=== PATIENT | male | born 1975 | race Two or more races ===

== ENCOUNTER 2024-08-31 00:54 | Emergency (ER) | payer MEDICAID, OTHER ==
[~2024-08-31] VITALS: Ht 177.8 cm; Wt 86.4 kg
[2024-08-31 01:29] LABS: Basophils # (auto) 0 10 ^3/uL (0-0.2); Basophils % (auto) 0.8 % (0.0-2.0); Eosinophils # (auto) 0.1 10 ^3/uL (0-0.8); Hematocrit 44.1 % (41.0-53.0); Lymphocytes # (auto) 1.7 10 ^3/uL (0.4-5.4); Lymphocytes % (auto) 31.8 % (10.0-50.0); Mean Corpuscular Hemoglobin 28.4 pg (28.0-32.0); Mean Corpuscular Volume 83.4 fL (80.0-100.0); Monocytes # (auto) 0.4 10 ^3/uL (0-1.3); Monocytes % (auto) 8.3 % (0.0-12.0); Neutrophils # (auto) 3.1 10 ^3/uL (1.6-8.6); Neutrophils % (auto) 58.1 % (37.0-80.0); Platelet Count (auto) 245 10^3/uL (140-450); Red Blood Cells 5.28 10^6/uL (4.5-5.90); Red Cell Distribution Width 12.8 % (11.8-14.3); White Blood Cell 5.4 10^3/uL (4.4-10.8)
[2024-08-31] MEDS: ONDANSETRON HCL 4 MG/2 ML VIAL IV ONE (01:43)
[2024-08-31] MEDS: HYDROmorphone HCL 2 MG/ML VL/or syr IV ONE (01:45)
[2024-08-31] MEDS: KETOROLAC TROMETH 30 MG/ML 1ML VIAL IV ONE (01:45)
[2024-08-31 01:46] LABS: Alanine Aminotransferase 21 U/L (7-40); Alkaline Phosphatase 50 U/L (46-116); Anion Gap 12 (5-15); Aspartate Aminotransferase 20 U/L (<34); BUN/Creatinine Ratio 17.4 (10.0-20.0); Bilirubin, Total 0.4 mg/dL (0.2-1.0); Blood Urea Nitrogen 20 mg/dL (9-23); Calcium 9.6 mg/dL (8.7-10.4); Carbon Dioxide 25 mmol/L (20-31); Chloride 102 mmol/L (98-107); Lipase 38 U/L (12-53); Potassium 3.8 mmol/L (3.5-5.1); Sodium 139 mmol/L (136-145); Total Protein 7.2 g/dL (5.7-8.2)
[2024-08-31] MEDS: SODIUM CHLORIDE 0.9% 1,000 ML IVB ONE (01:46)
--- NOTE | 2024-08-31 02:00 | ED.PDOC ---
History of Present Illness HPI Comments 49 y/o M, with a history of DVT's - on Eliquis, DM, HLD, and HTN, is BIBA for c/o nonradiating, right flank pain for the past 3-4x days. Patient endorses on pain being constant until worsening today following initial unprovoked onset. It is a 10/10 in severity, sharp in quality, and luzmaria to 'child .' Patient also reports 1x incident of hematuria 3x days ago. No recent injuries, prior ailments, sick contact, spoiled food consumption, or travel endorsed. He denies any nausea, vomiting, dysuria, fever, chills, or further associated symptoms. Chief Complaint: Flank Pain Time Seen by MD: 01:10 Reviewed Notes: Nurses Notes, Personal Finance Instructor Notes, Medications, Allergies Allergies: Coded Allergies: NO KNOWN ALLERGIES (Unverified , 08/31/24) Home Meds Active Scripts Gabapentin (Once-Daily) (Gabapentin) 300 Mg Tab, 300 MG PO Q6HP PRN, #60 TAB Prov:MARTHA LR MD 08/31/24 Tamsulosin Hcl (Flomax) 0.4 Mg Cap, 1 CAP PO DAILY for 30 Days, #30 CAP Prov:MARTHA LR MD 08/31/24 Information Source: Patient, Emergency Med Personnel Mode of Arrival: EMS Severity: Moderate Timing: Days Duration: Since onset Prehospital treatment: 12 Lead EKG, Solid Waste Facility Operator Past Medical History PAST MEDICAL HISTORY: DM, High Lipids, HTN Past Medical History (Other): DVT's - on Eliquis Surgical History (Other): Spinal fusion All Other Systems: Reviewed and Negative (Comprehensive systems review obtained and negative except for what is stated in the HPI.) Physical Exam General Appearance: Moderate Distress, Normal HEENT: Normal ENT Inspection, Pharynx Normal, TMs Normal Neck: Full Range of Motion, Non-Tender, Normal, Normal Inspection Respiratory: Chest Non-Tender, Lungs Clear, No Accessory Muscle Use, No Respiratory Distress, Normal Breath Sounds Cardiovascular: No Edema, No JVD, No Murmur, No Gallop, Normal Peripheral Pulses, Regular Rate/Rhythm Breast Exam: Deferred Gastrointestinal: No Organomegaly, Non Tender (Patient states on pain hurting 'deep inside' abdomen), No Pulsatile Mass, Normal Bowel Sounds, Soft Genitalia: Deferred Pelvic: Deferred Rectal: Deferred Extremities: No calf tenderness, Normal capillary refill, Normal inspection, Normal range of motion, Non-tender, No pedal edema Musculoskeletal : Apperance: Normal Neurologic: Alert, animal assistant II-XII nml as Tested, No Motor Deficits, Normal Affect, Normal Mood, No Sensory Deficits Cerebellar Function: Normal Reflexes: Normal Skin: Dry, Normal Color, Warm Lymphatic: No Adenopathy Was a procedure done? Was a procedure done?: No Differential Dx Considerations may include: Nephrolithiasis, pyelonephritis, cystitis, PID, musculoskeletal, chronic pain syndrome, among others X-Ray, Labs, Meds, VS Vital Signs Date Time Temp Pulse Resp B/P (MAP) Pulse Ox O2 Delivery O2 Flow Rate FiO2 08/31/24 02:58 64 12 96 Room Air 08/31/24 02:40 96.0 64 12 129/83 (98) 96 96.0 08/31/24 02:39 64 12 129/83 08/31/24 01:45 73 18 151/89 08/31/24 01:03 97.5 66 18 159/92 (114) 97 97.5 Lab Test 08/31/24 01:20 Range/Units White Blood Count 5.4 4.4-10.8 10^3/uL Red Blood Count 5.28 4.5-5.90 10^6/uL Hemoglobin 15.0 13.5-17.5 g/dL Hematocrit 44.1 41.0-53.0 % Mean Corpuscular Volume 83.4 80.0-100.0 fL Mean Corpuscular Hemoglobin 28.4 28.0-32.0 pg Mean Corpuscular Hemoglobin Concent 34.0 32.0-36.0 g/dL Red Cell Distribution Width 12.8 11.8-14.3 % Platelet Count 245 140-450 10^3/uL Mean Platelet Volume 7.6 6.9-10.8 fL Neutrophils (%) (Auto) 58.1 37.0-80.0 % Lymphocytes (%) (Auto) 31.8 10.0-50.0 % Monocytes (%) (Auto) 8.3 0.0-12.0 % Eosinophils (%) (Auto) 1.0 0.0-7.0 % Basophils (%) (Auto) 0.8 0.0-2.0 % Neutrophils # (Auto) 3.1 1.6-8.6 10 ^3/uL Lymphocytes # (Auto) 1.7 0.4-5.4 10 ^3/uL Monocytes # (Auto) 0.4 0-1.3 10 ^3/uL Eosinophils # (Auto) 0.1 0-0.8 10 ^3/uL Basophils # (Auto) 0 0-0.2 10 ^3/uL Nucleated Red Blood Cells 0.0 % Sodium Level 139 136-145 mmol/L Potassium Level 3.8 3.5-5.1 mmol/L Chloride Level 102 98-107 mmol/L Carbon Dioxide Level 25 20-31 mmol/L Anion Gap 12 5-15 Blood Urea Nitrogen 20 9-23 mg/dL Creatinine 1.15 0.700-1.30 mg/dL Glomerular Filtration Rate Calc 77 >90 mL/min BUN/Creatinine Ratio 17.4 10.0-20.0 Serum Glucose 110 H 74-106 mg/dL Calcium Level 9.6 8.7-10.4 mg/dL Total Bilirubin 0.4 0.2-1.0 mg/dL Aspartate Amino Transferase (AST) 20 <34 U/L Alanine Aminotransferase (ALT) 21 7-40 U/L Alkaline Phosphatase 50 46-116 U/L Total Protein 7.2 5.7-8.2 g/dL Albumin 4.8 3.2-4.8 g/dL Lipase 38 12-53 U/L Current Medications Medications (Trade) Dose Ordered Sig/Lucho Route Start Time Stop Time Status Last Admin Ondansetron HCl (Zofran) 4 mg ONCE ONCE IV 08/31/24 01:15 08/31/24 01:16 DC 08/31/24 01:43 Hydromorphone HCl (Dilaudid Injection) 1 mg ONCE ONCE IV 08/31/24 01:15 08/31/24 01:16 DC 08/31/24 01:45 Sodium Chloride 1,000 ml @ 1,000 mls/hr Q1H ONCE IVB 08/31/24 01:15 08/31/24 02:14 DC 08/31/24 01:46 Ketorolac Tromethamine (Toradol Injection) 15 mg ONCE ONCE IV 08/31/24 01:15 08/31/24 01:16 DC 08/31/24 01:45 Tamsulosin HCl (Flomax) 0.4 mg ONCE ONCE PO 08/31/24 03:00 08/31/24 03:01 DC 08/31/24 03:03 Time of 1ST Reevaluation: 01:40 Reevaluation 1ST: Unchanged Patient Education/Counseling: Diagnosis, Treatment Family Education/Counseling: No Family Present SEPSIS Sepsis Screen Date sepsis recognized/suspect: Aug 31, 2024 Time Sepsis recognized/suspect: 55 Recent Procedure: No On Antibiotic Therapy: No Respiratory Rate >20: No Heart Rate >90: No Temp<36 C (96.8 F) or >38.3 C: No SBP <90 or MAP <65 mmHG: No New Acute Mental Status Change: No Is the patient on CPAP, BIPAP,: No Orders/Vitals/Labs Physician Orders Urinalysis (08/31/24 01:11) Ct Ab Pel Wo Con-No Oral Or Iv (08/31/24 01:11) Vital Signs Date Time Temp Pulse Resp B/P (MAP) Pulse Ox O2 Delivery O2 Flow Rate FiO2 08/31/24 02:58 64 12 96 Room Air 08/31/24 02:40 96.0 64 12 129/83 (98) 96 96.0 08/31/24 02:39 64 12 129/83 08/31/24 01:45 73 18 151/89 08/31/24 01:03 97.5 66 18 159/92 (114) 97 97.5 Laboratory Tests Test 08/31/24 01:20 White Blood Count 5.4 10^3/uL (4.4-10.8) Medications Medications Dose Ordered Sig/Lucho Route Start Time Stop Time Status Last Admin Dose Admin Hydromorphone HCl 1 mg ONCE ONCE IV 08/31/24 01:15 08/31/24 01:16 DC 08/31/24 01:45 Ketorolac Tromethamine 15 mg ONCE ONCE IV 08/31/24 01:15 08/31/24 01:16 DC 08/31/24 01:45 Ondansetron HCl 4 mg ONCE ONCE IV 08/31/24 01:15 08/31/24 01:16 DC 08/31/24 01:43 Sodium Chloride 1,000 ml @ 1,000 mls/hr Q1H ONCE IVB 08/31/24 01:15 08/31/24 02:14 DC 08/31/24 01:46 Tamsulosin HCl 0.4 mg ONCE ONCE PO 08/31/24 03:00 08/31/24 03:01 DC 08/31/24 03:03 Departure 1 Departure Time of Disposition: 03:18 Impression: Primary Impression: Right ureteral calculus Additional Impression: Ureteral colic Disposition: HOME / SELF CARE / HOMELESS Condition: Stable e-Prescriptions Gabapentin (Once-Daily) (Gabapentin) 300 Mg Tab 300 MG PO Q6HP PRN, #60 TAB Prov: MARTHA LR MD 08/31/24 Tamsulosin Hcl (Flomax) 0.4 Mg Cap 1 CAP PO DAILY for 30 Days, #30 CAP Prov: MARTHA LR MD 08/31/24 Discharged With: Self Critical Care Note Critical Care Time?: No Stability Stability form required: No Heart Score Heart Score: Heart Score Response (Comments) Value History N/A 0 EKG N/A 0 Age N/A 0 Risk Factors N/A 0 Troponin N/A 0 Total 0 I personally scribed for MARTHA LR MD ([email or web address]) on 08/31/24 at 02:00. Electronically submitted by Job Braswell ([email or web address]). MARTHA LR MD Aug 31, 2024 02:00
--- NOTE | 2024-08-31 02:01 | DVH ---
Exam: CT CT AB PEL WO CON-NO ORAL OR IV History: right flank pain Comparison Study: None TECHNIQUE: Multidetector CT of the abdomen and pelvis was performed from lung bases to pubic symphysi s. Imaging was performed without IV contrast. Axial, coronal, and sagittal multiplanar reformats were obtained from the axial data set by the technologist. RADIATION DOSE: DLP 8.3 mGy.cm; CTDI vol 493.5 mGy. Findings: Lungs: There are dependent atelectatic changes. Liver: Unremarkable. Gallbladder: Unremarkable. Spleen: Unremarkable Pancreas: Unremarkable Adrenals: Unremarkable Kidneys: There is a 5 mm calculus situated within the right proximal ureter with mild right hydroneph rosis. An additional 3 mm calculus is seen in the right renal collecting system. The left kidney is unremarkable. GI tract: No bowel obstruction. The appendix is normal. Tiny fat containing umbilical hernia. : Unremarkable. Vasculature: Unremarkable Lymphadenopathy: Absent Peritoneum: No ascites Musculoskeletal: Postsurgical changes at L4-5. Soft tissues: Unremarkable Impression: 1. 5 mm calculus situated within the right proximal ureter with mild right hydronephrosis. 2. Additional findings as detailed.
[2024-08-31 02:21] LABS: Albumin 4.8 g/dL (3.2-4.8); Glucose 110 mg/dL (74-106)
[2024-08-31 02:40] VITALS: BP 129/83; TEMP 96
[2024-08-31 02:58] VITALS: PULSE 64; RESP 12; O2SAT 96
[2024-08-31] MEDS ORDERED: TAMS-35 PO (03:01)
[2024-08-31] MEDS ORDERED: GABA300T4 PO (03:01)
[2024-08-31] MEDS: TAMSULOSIN HYDROCHLORIDE 0.4 MG CAP PO ONE (03:03)
[2024-08-31 03:19] LABS: Urine Bacteria None Seen /hpf (None Seen)
[2024-08-31 03:31] LABS: Urine Blood 3+ /uL (Negative); Urine Clarity Turbid (Clear); Urine Color Light-Orange (Yellow); Urine Mucus FEW (None Seen); Urine Protein, UAD 1+ (Negative); Urine Specific Gravity 1.028 (1.001-1.035); Urine Squamous Epithelial Cell FEW /hpf (<5); Urine Urobilinogen Normal (Negative); Urine WBC 3 /HPF (0-3); Urine pH 5.5 (5.0-9.0)
[2024-08-31] MEDS ORDERED: LISI-285 PO (13:55)
[2024-08-31] MEDS ORDERED: APIX5TAB PO (13:55)
[2024-08-31] MEDS ORDERED: FENO134C19 PO (13:55)
== END 2024-08-31 03:18 | disposition home or self-care (01) ==
LOC: EDBD 00:54 → ER 00:54
DX: N13.2 Hydronephrosis with renal and ureteral calculous obstruction (principal); I10 Essential (primary) hypertension; E11.9 Type 2 diabetes mellitus without complications; E78.5 Hyperlipidemia, unspecified; Z86.718 Personal history of other venous thrombosis and embolism
CPT/HCPCS: 36415; 74176; 80053; 81001; 83690; 85025; 96361; 96374; 96375; 99285; J1171; J1885; J2405; J7030

== ENCOUNTER 2024-08-31 09:08 | Inpatient (IN) | payer MEDICAID ==
[~2024-08-31] VITALS: Ht 175.3 cm; Wt 181.5 kg
[~2024-08-31 09:08] MED LIST: GABA300T4 PO; TAMS-35 PO
--- NOTE | 2024-08-31 09:40 | ED.PDOC ---
General HPI Comments 49 y/o M, with a history of DVT's - on Eliquis, DM, HLD, and HTN, is BIBA for c/o nonradiating, right flank pain for the past 3-4x days. Patient endorses on pain being constant until worsening today following initial unprovoked onset. It is a 10/10 in severity, sharp in quality, and luzmaria to 'child .' Patient also reports 1x incident of hematuria 3x days ago. No recent injuries, prior ailments, sick contact, spoiled food consumption, or travel endorsed. He denies any nausea, vomiting, dysuria, fever, chills, or further associated symptoms. Denies fevers chills night sweats unintentional weight loss Denies nausea vomiting diarrhea Denies blood in the stool Denies sick contact with similar symptoms Denies new foods/medications Denies family history of GI cancer Denies urgency, frequency, hematuria Chief Complaint: Flank Pain Time Seen by MD: 09:35 Reviewed notes: Nurses Notes, Medications, Allergies Allergies: Coded Allergies: NO KNOWN ALLERGIES (Unverified , 08/31/24) Home Meds Active Scripts Hydrocodone-Acetaminophen (Hydrocodone Bitartrate/AC 5-325 mg) 1 Tab Tab, 1 TAB PO Q4HPRN PRN, #20 TAB Prov:SAMSON CHOI MD 09/04/24 Levofloxacin Hemihydrate (LEVOFLOXACIN) 750 Mg Tab, 750 MG PO DAILY for 5 Days, #5 TAB 0 Refills Prov:CORA TERRAZAS RESIDENT 09/04/24 Tamsulosin Hcl (Tamsulosin Hcl) 0.4 Mg Cap, 0.4 MG PO DAILY for 30 Days, #30 CAP 0 Refills Prov:CORA TERRAZAS RESIDENT 09/04/24 Gabapentin (Once-Daily) (Gabapentin) 300 Mg Tab, 300 MG PO Q6HP PRN, #60 TAB Prov:MARTHA LR MD 08/31/24 Tamsulosin Hcl (Flomax) 0.4 Mg Cap, 1 CAP PO DAILY for 30 Days, #30 CAP Prov:MARTHA LR MD 08/31/24 Reported Medications Lisinopril & Hydrochlorothiazi (Lisinopril/Hydrochlorothi) 1 Tab Tab, 1 TAB PO DAILY, #30 TAB 5 Refills 08/31/24 Fenofibrate (Fenofibrate Micronized) 134 Mg Cap, 1 CAP PO DAILY, #30 CAP 5 Refills 08/31/24 Apixaban Base (ELIQUIS) 5 Mg Tab, 1 TAB PO BID 08/31/24 Information Source: Patient Mode of Arrival: Ambulatory Severity: Moderate Inability to void: None Timing: Days Duration: Since onset, Days Prehospital treatment: None Onset: Spontaneous Symptoms: None History of: None Location: (R) Flank Penile discharge: None Modifying factors: None associated signs and symptoms: None Past Medical History PAST MEDICAL HISTORY: DM, High Lipids, HTN Family History Family History: Reviewed,noncontributory to illness, No family hx of Cancer, No family hx of DM, No family hx of Heart surjit, No family hx of HTN, No family hx ofKidney surjit, No family hx of Liver surjit, No family hx of Lung surjit, No family hx of Stroke Social History Smoker: Non-Smoker Alcohol: Denies ETOH Use Drugs: Denies Drug Use Lives In: Home Constitutional: denies: chills, diaphoresis, fatigue, fever, malaise, sweats, weakness, others EENTM: denies: blurred vision, double vision, ear bleeding, ear discharge, ear drainage, ear pain, ear ringing, eye pain, eye redness, hearing loss, mouth pain, mouth swelling, nasal discharge, nose bleeding, nose congestion, nose pain, photophobia, tearing, throat pain, throat swelling, voice changes, others Respiratory: denies: cough, hemoptysis, orthopnea, SOB at rest, shortness of breath, SOB with excertion, stridor, wheezing, others Cardiovascular: denies: chest pain, dizzy spells, diaphoresis, Dyspnea on exertion, edema, irregular heart beat, left arm pain, lightheadedness, palpitations, PND, syncope, others Gastrointestinal: denies: abdomen distended, abdominal pain, blood streaked bowels, constipated, diarrhea, dysphagia, difficulty swallowing, hematemesis, melena, nausea, poor appetite, poor fluid intake, rectal bleeding, rectal pain, vomiting, others Genitourinary: reports: flank pain; denies: burning, dysuria, frequency, hematuria, incontinence, penile discharge, penile sore, pain, testicle pain, testicle swelling, urgency, others Neurological: denies: dizziness, fainting, headache, left sided numbness, left sided weakness, numbness, paresthesia, pre-existing deficit, right sided numbness, right sided weakness, seizure, speech problems, tingling, tremors, weakness, others Musculoskeletal: denies: back pain, gout, joint pain, joint swelling, muscle pain, muscle stiffness, neck pain, others Integumetry: denies: bruises, change in color, change in hair/nails, dryness, laceration, lesions, lumps, rash, wounds, others Allergic/Immunocompromised: denies: Difficulty Healing, Frequent Infections, Hives, Itching, others Hematologic/Lymphatic: denies: anemia, blood clots, easy bleeding, easy bruising, swollen glands, others Endocrine: denies: excessive hunger, excessive sweating, excessive thirst, excessive urination, flushing, intolerance to cold, intolerance to heat, unexplained weight gain, unexplained weight loss, others Psychiatric: denies: anxiety, bipolar disorder, depression, hopeless, panic disorder, schizophrenia, sleepless, suicidal, others All Other Systems: Reviewed and Negative Physical Exam General Appearance: Mild Distress, Normal, Obese HEENT: Normal ENT Inspection, Pharynx Normal, TMs Normal Neck: Full Range of Motion, Non-Tender, Normal, Normal Inspection Respiratory: Chest Non-Tender, Lungs Clear, No Accessory Muscle Use, No Respiratory Distress, Normal Breath Sounds Cardiovascular: No Murmur, No Gallop, Regular Rate/Rhythm Breast Exam: Deferred Gastrointestinal: Non Tender, No Pulsatile Mass, Normal Bowel Sounds, Soft, Other (TTP to right flank) Genitalia: Deferred Pelvic: Deferred Rectal: Deferred Extremities: No calf tenderness, Normal range of motion, Non-tender, No pedal edema Musculoskeletal : Apperance: Normal Neurologic: Alert, No Motor Deficits, Normal Mood Cerebellar Function: Normal Reflexes: Normal Skin: Dry, Normal Color, Warm Lymphatic: No Adenopathy Was a procedure done? Was a procedure done?: No Differential Diagnosis Kidney stone (Female): Other Kidney stone (Male): Cholelithiasis, Cholangitis, Pancreatitis, Strain, Urinary obstruction, Urolithiasis, Renal infarction, Urinary tract infection Urinary Problem (Male): Bladder Outlet, Bladder Obstruction, Epididymitis, Prostatitis, Plelonephritis, Urethritis, Urinary Retention, Urolithiasis, UTI X-Ray, Labs, Meds, VS Vital Signs Date Time Temp Pulse Resp B/P (MAP) Pulse Ox O2 Delivery O2 Flow Rate FiO2 08/31/24 11:33 98.2 69 18 169/110 (129) 97 98.2 08/31/24 10:27 68 20 184/98 08/31/24 09:48 76 20 175/101 08/31/24 09:38 98.7 74 20 175/101 (125) 95 98.7 08/31/24 09:33 98.7 74 20 175/101 (125) 95 98.7 X-Ray, Labs, Meds, VS Comment 49 y/o M, with a history of DVT's - on Eliquis, DM, HLD, and HTN, is BIBA for c/o nonradiating, right flank pain for the past 3-4x days. Patient arrives alert and oriented, ABC's intact, afebrile, vital signs stable, saturating well in room air Patient seen last night by MD and return for intractable pain CT on yesterday's visit showed 5 mm calculus situated within the right proximal ureter with mild right hydronephrosis. Patient was given:1L Saline, 4mg Morphine, 4mg Zofran_. Tolerated medications with no adverse reaction but on re-evaluation patient reports no improvement. Pain 01/23 The patient's workup reveals that the patient needs further evaluation and/or treatment for the above medical conditions. Patient will be admitted for intractable pain. We will benefit from Urology consultation Patient verbalized understanding of the above and is awaiting further evaluation by the admitting service. Time of 1ST Reevaluation: 10:06 Reevaluation 1ST: Unchanged Patient Education/Counseling: Diagnosis, Treatment Family Education/Counseling: No Family Present SEPSIS Sepsis Screen Orders/Vitals/Labs Physician Orders Heplock Iv (08/31/24 ) Vital Signs Date Time Temp Pulse Resp B/P (MAP) Pulse Ox O2 Delivery O2 Flow Rate FiO2 08/31/24 11:33 98.2 69 18 169/110 (129) 97 98.2 08/31/24 10:27 68 20 184/98 08/31/24 09:48 76 20 175/101 08/31/24 09:38 98.7 74 20 175/101 (125) 95 98.7 08/31/24 09:33 98.7 74 20 175/101 (125) 95 98.7 Departure 1 Departure Time of Disposition: 12:16 Impression: Primary Impression: Right ureteral calculus Additional Impressions: Hydronephrosis Qualified Codes: N13.30 - Unspecified hydronephrosis Intractable pain Disposition: ADMITTED INPATIENT Condition: Fair e-Prescriptions Hydrocodone-Acetaminophen (Hydrocodone Bitartrate/AC 5-325 mg) 1 Tab Tab 1 TAB PO Q4HPRN PRN, #20 TAB Prov: SAMSON CHOI MD 09/04/24 Levofloxacin Hemihydrate (LEVOFLOXACIN) 750 Mg Tab 750 MG PO DAILY for 5 Days, #5 TAB 0 Refills Prov: CORA TERRAZAS 09/04/24 Tamsulosin Hcl (Tamsulosin Hcl) 0.4 Mg Cap 0.4 MG PO DAILY for 30 Days, #30 CAP 0 Refills Prov: CORA TERRAZAS 09/04/24 Critical Care Note Critical Care Time?: No Stability Stability form required: No Heart Score Heart Score: Heart Score Response (Comments) Value History N/A 0 EKG N/A 0 Age N/A 0 Risk Factors N/A 0 Troponin N/A 0 Total 0 I personally scribed for TAWNY SINGER NP ([email or web address]) on 08/31/24 at 09:40. Electronically submitted by Aries Parish ([email or web address]). I personally scribed for TAWNY SINGER NP ([email or web address]) on 08/31/24 at 09:44. Electronically submitted by Aries Parish ([email or web address]). TAWNY SINGER NP Aug 31, 2024 09:40
[2024-08-31] MEDS: MORPHINE SULFATE 4 MG/ML SYR/VIAL IV ONE (09:48)
[2024-08-31] MEDS: ONDANSETRON HCL 4 MG/2 ML VIAL IV ONE (09:48)
[2024-08-31] MEDS: SODIUM CHLORIDE 0.9% 1,000 ML IV ONE ×2 (09:49→12:37)
[2024-08-31] MEDS: KETOROLAC TROMETH 60MG/2ML VIAL IM ONE (12:37)
[2024-08-31] MEDS: TAMSULOSIN HYDROCHLORIDE 0.4 MG CAP PO ONE (12:38)
[2024-08-31] MEDS ORDERED: FENO134C19 PO (13:55)
[2024-08-31] MEDS ORDERED: APIX5TAB PO (13:55)
[2024-08-31] MEDS ORDERED: LISI-285 PO (13:55)
[2024-08-31] MEDS ORDERED: ONDANSETRON HCL 4 MG/2 ML VIAL IV PRN (14:00)
[2024-08-31] MEDS ORDERED: PROCHLORPERAZINE EDISYLATE 5 MG/ML 2ML VIAL IV PRN (14:00)
[2024-08-31] MEDS ORDERED: ACETAMINOPHEN 325 MG TAB PO PRN (14:00)
--- NOTE | 2024-08-31 14:07 | DVHHP2 ---
History of Present Illness Reason for Visit: right flank pain History of Present Illness Torsten Burton is a 49-year-old male with past medical history of hypertension, hyperlipidemia, and DVT, who came to the hospital due to right flank pain. Patient was seen here yesterday and diagnosed with kidney stones. He was given IV fluids, and a couple prescriptions, and sent home. He came back this morning because his pain has worsened. He is unable to sleep, or move, and is vomiting uncontrollably due to the pain. Cardiovascular: HTN, hyperipidemia Heme/Onc: Other (DVT x 2) Past Surgical History: Other (spine surgery x 2) Smoke: No ALCOHOL: none Drugs: None Lives: with Family Domestic Violence: Neg Review of Systems Constitutional: No: Fever, Chills, Sweats, Weakness, Malaise, Other Eyes: No: Pain, Vision change, Conjunctivae inflammation, Eyelid inflammation, Other, Redness ENT: No: Ear pain, Ear discharge, Nose pain, Nose discharge, Nose congestion, Mouth pain, Mouth swelling, Throat pain, Throat swelling, Other Respiratory: No: Cough, Dry, Shortness of breath, SOB with excertion, Wheezing, Hemoptysis, Pleuritic Pain, Sputum, Wheezing, Other Cardiovascular: No: Chest Pain, Palpitations, Orthopnea, Paroxysmal Noc. Dyspnea, Edema, Lt Headedness, Other Gastrointestinal: No: Nausea, Vomiting, Abdominal Pain, Diarrhea, Constipation, Melena, Hematochezia, Other Genitourinary: No Dysuria, No Frequency, No Incontinence, No Hematuria, No Retention, No Other Musculoskeletal: No: other, neck pain, shoulder pain, arm pain, back pain, hand pain, leg pain, foot pain Skin: No: Rash, Lesions, Jaundice, Bruising, Other Neurological: No: Weakness, Numbness, Incoordination, Change in speech, Confusion, Seizures, Other Allergies: Coded Allergies: NO KNOWN ALLERGIES (Unverified , 08/31/24) Medications Current Medications Medications Dose Ordered Sig/Lucho Route Start Time Stop Time Status Last Admin Dose Admin Acetaminophen/ Hydrocodone Bitart 1 tab Q4HP PRN PO 08/31/24 14:00 UNV Ondansetron HCl 4 mg Q4HP PRN IV 08/31/24 14:00 UNV Docusate Sodium 100 mg BIDPRN PRN PO 08/31/24 14:00 UNV Acetaminophen 650 mg Q6HP PRN PO 08/31/24 14:00 UNV Morphine Sulfate 2 mg Q4HPRN PRN IV 08/31/24 14:00 UNV Tamsulosin HCl 0.4 mg QPM PO 08/31/24 18:00 UNV Sodium Chloride 1,000 ml @ 125 mls/hr Q8H IV 08/31/24 14:00 UNV Prochlorperazine Edisylate 10 mg Q4HPRN PRN IV 08/31/24 14:00 UNV Exam Vital Signs Vital Signs Date Time Temp Pulse Resp B/P (MAP) Pulse Ox O2 Delivery O2 Flow Rate FiO2 08/31/24 11:33 98.2 69 18 169/110 (129) 97 98.2 General Appearance: Alert, Oriented X3, Cooperative, moderate distress HEENT: Atraumatic, PERRLA, Mucous membr. moist/pink Respiratory: Clear to auscultation, Normal air movement Cardiovascular: Regular rate, Normal S1, Normal S2, No murmurs Abdominal: Normal bowel sounds, Soft, No tenderness, No hepatospenomegaly Extremities: No clubbing, No cyanosis, No edema, Normal pulses, No tenderness/swelling Skin: No rashes, No breakdown, No significant lesion Neuro: Normal gait, Normal speech, Strength at 5/5 X4 ext Psych/Mental Status: Mental status NL, Mood NL Assessment/Plan Assessment/Plan Assessment: Right ureteral calculus, Hydronephrosis, Hypertension, Plan: Admit to Med-Surg, IV hydration, Pain management, Flomax, Consider urology consult if symptoms persist, Strain all urine, Home medications reconciled, Plan discussed with: Patient My Orders Orders - FABIAN BOATENG [employer] SAL[employer] EXECUTIVE Procedure Category Date Status Time Admit ADMIT 08/31/24 Transmitted 13:50 Code Status CODE 08/31/24 Transmitted 13:50 2 Gm Sodium Diet DIET 08/31/24 Transmitted Dinner Hydrocodone-Acet PHA 08/31/24 Logged 5/325mg Tab ([place] 14:00 Ondansetron Hcl PHA 08/31/24 Logged (Zofran) 14:00 Docusate Sodium PHA 08/31/24 Logged Capsule ([place] 14:00 Complete Blood Count LAB 09/01/24 Verified 04:00 Comprehensive LAB 09/01/24 Verified Metabolic Panel 04:00 Condition: Serious PENELOPE 08/31/24 In Process 13:50 Acetaminophen Tablet PHA 08/31/24 Logged (Tylenol Tablet) 14:00 Morphine Sulfate PHA 08/31/24 Logged Injection 14:00 Tamsulosin PHA 08/31/24 Logged Hydrochloride (Flomax) 18:00 Sodium Chloride 0.9% PHA 08/31/24 Logged 14:00 Prochlorperazine Inj PHA 08/31/24 Logged (Compazine Inj) 14:00 Apixaban (Eliquis) PHA 08/31/24 Transmitted 22:00 (Nf) Fenofibrate PHA 09/01/24 Transmitted (Fenofibrate 10:00 (Nf) Lisinopril & PHA 09/01/24 Transmitted Hydrochlorothiazi (Lis 10:00 Date of Service: Aug 31, 2024 Billing Provider: FABIAN BOATENG Common Visit Codes: [id number] INP/OBS CARE (MOD) FABIAN BOATENG Aug 31, 2024 14:07
[2024-08-31 15:55] VITALS: BP 149/94; PULSE 61; RESP 16; TEMP 98; O2SAT 61; O2SAT 96
[2024-08-31] MEDS: SODIUM CHLORIDE 0.9% 1,000 ML IV SCH (16:35)
[2024-08-31] MEDS: TAMSULOSIN HYDROCHLORIDE 0.4 MG CAP PO SCH (17:35)
[2024-08-31 21:00] VITALS: BP 170/89; PULSE 74; RESP 17; TEMP 98.3; O2SAT 98
[2024-08-31] MEDS: HYDROcodone-ACET 5/325MG TAB PO PRN (21:02)
[2024-08-31] MEDS: APIXABAN 5 MG TAB PO SCH (22:24)
[2024-09-01] VITALS (8 sets, daily range): BP systolic 111–155; BP diastolic 59–95; PULSE 69–84; RESP 17–18; TEMP 97.9–98.5; O2SAT 95–99
[2024-09-01 04:37] LABS: Basophils # (auto) 0 10 ^3/uL (0-0.2); Basophils % (auto) 0.4 % (0.0-2.0); Eosinophils # (auto) 0 10 ^3/uL (0-0.8); Eosinophils % (auto) 0.4 % (0.0-7.0); Hematocrit 38.5 % (41.0-53.0); Lymphocytes # (auto) 1.4 10 ^3/uL (0.4-5.4); Lymphocytes % (auto) 20.3 % (10.0-50.0); Mean Corpuscular Hemoglobin 28.6 pg (28.0-32.0); Mean Corpuscular Hgb Conc. 33.7 g/dL (32.0-36.0); Mean Corpuscular Volume 84.8 fL (80.0-100.0); Monocytes # (auto) 0.8 10 ^3/uL (0-1.3); Monocytes % (auto) 11.9 % (0.0-12.0); Neutrophils # (auto) 4.7 10 ^3/uL (1.6-8.6); Platelet Count (auto) 203 10^3/uL (140-450); Red Blood Cells 4.54 10^6/uL (4.5-5.90); Red Cell Distribution Width 12.8 % (11.8-14.3)
[2024-09-01 04:56] LABS: Alanine Aminotransferase 15 U/L (7-40); Albumin 3.9 g/dL (3.2-4.8); Anion Gap 9 (5-15); Aspartate Aminotransferase 17 U/L (<34); BUN/Creatinine Ratio 9.2 (10.0-20.0); Blood Urea Nitrogen 16 mg/dL (9-23); Carbon Dioxide 26 mmol/L (20-31); Chloride 106 mmol/L (98-107); Glucose 101 mg/dL (74-106); Potassium 4.4 mmol/L (3.5-5.1); Sodium 141 mmol/L (136-145)
[2024-09-01 04:57] LABS: Alkaline Phosphatase 39 U/L (46-116); Bilirubin, Total 0.6 mg/dL (0.2-1.0); Calcium 8.6 mg/dL (8.7-10.4)
[2024-09-01] MEDS: MORPHINE SULFATE INJ 2 MG/ml SYRG IV PRN (11:04)
--- NOTE | 2024-09-01 12:48 | DVH ---
EXAM DESCRIPTION: RENAL ULTRASOUND CLINICAL HISTORY: R/O Hydronephrosis COMPARISON: None TECHNIQUE: Multiplanar ultrasound examination of the kidneys and urinary bladder was performed. FINDINGS: The right kidney measures 11.7 cm. No renal calculus. [id number] right hydronephrosis. No solid renal masses. The left kidney measures 10.5 cm. No renal calculus. No hydronephrosis.. No solid renal masses. The echogenicity of the kidneys is within normal limits. Prevoid images of the bladder are unremarkable. IMPRESSION: 1. [id number] right hydronephrosis. No renal calculi identified. Recommend further evaluation w ith CT abdomen pelvis without IV contrast
--- NOTE | 2024-09-01 16:51 | DVHPNRES ---
Progress Note Date Seen: Sep 01, 2024 Resident Creating Document: TALON SONI RESIDENT Medical Necessity Reason Pt with a Central, PICC or Fol: No Subjective Review of Systems Torsten Burton is a 49-year-old male with past medical history of hypertension, hyperlipidemia, and DVT, who came to the hospital due to right flank pain. Patient was seen here yesterday and diagnosed with kidney stones. He was given IV fluids, and a couple prescriptions, and sent home. He came back this morning because his pain has worsened. He is unable to sleep, or move, and is vomiting uncontrollably due to the pain. Patient seen and examined at bedside. Reports right flank pain. Objective vital signs Vital Sign Date Time Temp Pulse Resp B/P (MAP) Pulse Ox O2 Delivery O2 Flow Rate FiO2 09/01/24 12:48 98.3 79 18 136/75 (95) 95 98.3 08/31/24 15:15 Room Air* 0 21 Total Intake and Output 08/31/24 08/31/24 09/01/24 15:00 23:00 07:00 Intake Total 1000 ml Balance 1000 ml medications Current Medications Medications Dose Ordered Sig/Lucho Route Start Time Stop Time Status Last Admin Dose Admin Acetaminophen/ Hydrocodone Bitart 1 tab Q4HP PRN PO 08/31/24 14:00 09/01/24 05:48 1 TAB Ondansetron HCl 4 mg Q4HP PRN IV 08/31/24 14:00 Docusate Sodium 100 mg BIDPRN PRN PO 08/31/24 14:00 Acetaminophen 650 mg Q6HP PRN PO 08/31/24 14:00 Morphine Sulfate 2 mg Q4HPRN PRN IV 08/31/24 14:00 09/01/24 11:04 2 MG Tamsulosin HCl 0.4 mg QPM PO 08/31/24 18:00 08/31/24 17:35 0.4 MG Sodium Chloride 1,000 ml @ 125 mls/hr Q8H IV 08/31/24 14:00 09/01/24 05:12 125 MLS/HR Prochlorperazine Edisylate 10 mg Q4HPRN PRN IV 08/31/24 14:00 Apixaban 5 mg BID PO 08/31/24 22:00 09/01/24 09:19 5 MG Patient Own Medication 1 cap DAILY PO 09/01/24 10:00 09/01/24 10:00 1 CAP Patient Own Medication 1 tab DAILY PO 09/01/24 10:00 09/01/24 10:00 1 TAB Examination Patient lying in bed, in no acute distress General: Well-built, afebrile, palor, mucosae are moist Cardiovascular: Regular S1 and S2. No murmurs, gallops or rubs. No JVD elevation. No pedal edema Respiratory: Normal B/L air entry on room air. Clear lung sounds on auscultation Abdomen: Soft, right flank tenderness, nondistended, normoactive bowel sounds, no rebound tenderness, no organomegaly, no masses Genitourinary: Deferred MSK/skin: Mobilizes 4 limbs. Skin is dry and warm Neurological: No motor, no sensitive deficits, normal speech. Pupils are isocoric and reactive. Psych/Mental Status: A/Ox3 laboratory and microbiology Laboratory Tests 09/01/24 03:25 Test 09/01/24 03:25 Range/Units Serum Glucose 101 74-106 mg/dL Labs and/or images reviewed: Labs reviewed by me, Image(s) reviewed by me Problem List/Assessment/Plan Problem List/Assessment/Plan Acute right flank pain, rule out nephrolithiasis Intractable nausea and pain [id number] right-sided hydronephrosis Acute kidney injury likely vasomotor mediated due to above Continue pain management and IV fluids IV antiemetic prochlorperazine Urology consulted Uncontrolled hypertension Continue home medication lisinopril and hydrochlorothiazide Anemia likely normocytic Monitor H&H Plan discussed with patient in which all questions have been answered Goal of care discussed with patient for 23 minutes: Full code Case discussed with Dr. Barone Plan discussed with: Patient My Orders My Orders Orders - TALON SONI RESIDENT Procedure Category Date Status Time Kidney US 09/01/24 Resulted 11:42 * Urology Consult CONS 09/01/24 Transmitted 11:43 Date of Service: Sep 01, 2024 Billing Provider: SADIQ HOGAN MD Common Visit Codes: [id number] INP/OBS CARE(HIGH) TALON SONI RESIDENT Sep 01, 2024 16:50 SADIQ HOGAN MD Sep 05, 2024 10:03
[2024-09-01] MEDS: DOCUSATE SOD 100 MG CAP PO PRN (19:04)
[2024-09-02] VITALS (11 sets, daily range): BP systolic 106–214; BP diastolic 73–105; PULSE 68–90; RESP 16–19; TEMP 97.8–98.2; O2SAT 94–97
[2024-09-02 06:04] LABS: Basophils # (auto) 0 10 ^3/uL (0-0.2); Basophils % (auto) 0.3 % (0.0-2.0); Eosinophils # (auto) 0 10 ^3/uL (0-0.8); Eosinophils % (auto) 0.2 % (0.0-7.0); Hematocrit 36.2 % (41.0-53.0); Hemoglobin 12.6 g/dL (13.5-17.5); Lymphocytes # (auto) 0.7 10 ^3/uL (0.4-5.4); Lymphocytes % (auto) 7.8 % (10.0-50.0); Mean Corpuscular Hemoglobin 29.3 pg (28.0-32.0); Mean Corpuscular Hgb Conc. 34.7 g/dL (32.0-36.0); Mean Corpuscular Volume 84.4 fL (80.0-100.0); Monocytes # (auto) 0.7 10 ^3/uL (0-1.3); Monocytes % (auto) 7.2 % (0.0-12.0); Neutrophils # (auto) 7.8 10 ^3/uL (1.6-8.6); Neutrophils % (auto) 84.5 % (37.0-80.0); Platelet Count (auto) 208 10^3/uL (140-450); Red Blood Cells 4.28 10^6/uL (4.5-5.90); Red Cell Distribution Width 12.7 % (11.8-14.3); White Blood Cell 9.3 10^3/uL (4.4-10.8)
[2024-09-02 06:16] LABS: Calcium 8.7 mg/dL (8.7-10.4); Chloride 105 mmol/L (98-107); Potassium 4.2 mmol/L (3.5-5.1); Sodium 140 mmol/L (136-145)
[2024-09-02 06:17] LABS: Anion Gap 10 (5-15); Carbon Dioxide 25 mmol/L (20-31)
[2024-09-02 06:23] LABS: BUN/Creatinine Ratio 10.1 (10.0-20.0); Blood Urea Nitrogen 15 mg/dL (9-23); Glucose 126 mg/dL (74-106)
[2024-09-02] MEDS ORDERED: HYDROmorphone HCL 2 MG/ML VL/or syr IV PRN (10:00)
--- NOTE | 2024-09-02 10:33 | DVHPNRES ---
Progress Note Date Seen: Sep 02, 2024 Resident Creating Document: TALON SONI RESIDENT Medical Necessity Reason Pt with a Central, PICC or Fol: No Subjective Review of Systems Patient seen and examined at bedside. Reports right flank pain. Right ureteric calculus, waiting for urology follow up. Objective vital signs Vital Sign Date Time Temp Pulse Resp B/P (MAP) Pulse Ox O2 Delivery O2 Flow Rate FiO2 09/02/24 05:00 97.8 77 18 133/75 (94) 94 97.8 09/01/24 23:22 Room Air* 0 21 Total Intake and Output 09/01/24 09/01/24 09/02/24 15:00 23:00 07:00 Intake Total 1080 ml 600 ml Balance 1080 ml 600 ml medications Current Medications Medications Dose Ordered Sig/Lucho Route Start Time Stop Time Status Last Admin Dose Admin Ondansetron HCl 4 mg Q4HP PRN IV 08/31/24 14:00 Docusate Sodium 100 mg BIDPRN PRN PO 08/31/24 14:00 09/01/24 19:04 100 MG Acetaminophen 650 mg Q6HP PRN PO 08/31/24 14:00 Tamsulosin HCl 0.4 mg QPM PO 08/31/24 18:00 09/01/24 18:11 0.4 MG Sodium Chloride 1,000 ml @ 125 mls/hr Q8H IV 08/31/24 14:00 09/02/24 05:14 125 MLS/HR Prochlorperazine Edisylate 10 mg Q4HPRN PRN IV 08/31/24 14:00 Apixaban 5 mg BID PO 08/31/24 22:00 09/02/24 09:37 5 MG Patient Own Medication 1 tab DAILY PO 09/01/24 10:00 09/02/24 09:36 1 TAB Patient Own Medication 1 cap DAILY PO 09/02/24 10:00 09/02/24 09:36 1 CAP Hydromorphone HCl 1 mg Q4HPRN PRN IV 09/02/24 10:00 Hold Acetaminophen/ Hydrocodone Bitart 1 tab Q4HP PRN PO 09/02/24 13:30 Examination General: Well-built, afebrile, palor, mucosae are moist Cardiovascular: Regular S1 and S2. No murmurs, gallops or rubs. No JVD elevation. No pedal edema Respiratory: Normal B/L air entry on room air. Clear lung sounds on auscultation Abdomen: Soft, right flank tenderness, nondistended, normoactive bowel sounds, no rebound tenderness, no organomegaly, no masses Genitourinary: Deferred MSK/skin: Mobilizes 4 limbs. Skin is dry and warm Neurological: No motor, no sensitive deficits, normal speech. Pupils are isocoric and reactive. Psych/Mental Status: A/Ox3 laboratory and microbiology Laboratory Tests 09/02/24 04:43 Test 09/02/24 04:43 Range/Units Serum Glucose 126 H 74-106 mg/dL Problem List/Assessment/Plan Problem List/Assessment/Plan Acute right flank pain, rule out nephrolithiasis Intractable nausea and pain [id number] right-sided hydronephrosis Acute kidney injury likely vasomotor mediated due to above Continue pain management and IV fluids IV antiemetic prochlorperazine Urology consult: Pending Uncontrolled hypertension Continue home medication lisinopril and hydrochlorothiazide Anemia likely normocytic Monitor H&H Plan discussed with patient in which all questions have been answered Goal of care discussed with patient for 19 minutes: Full code Case discussed with Dr. Barone Plan discussed with: Patient My Orders My Orders Orders - TALON SONI RESIDENT Procedure Category Date Status Time Kidney US 09/01/24 Resulted 11:42 * Urology Consult CONS 09/01/24 Transmitted 11:43 Hydromorphone PHA 09/02/24 In Process Injection (Dilaudid 10:00 Hydrocodone-Acet PHA 09/02/24 In Process 10/325mg Tab ([place] 13:30 TALON SONI RESIDENT Sep 02, 2024 10:33
[2024-09-02] MEDS: MANNITOL FTV 25% 12.5 GM/50 ML 50 ML IV ONE (14:30)
[2024-09-02] MEDS: HYDROcodone-ACET 10/325MG TAB PO PRN (15:12)
--- NOTE | 2024-09-02 15:21 | DVH ---
CT CT AB PEL WO CON-NO ORAL OR IV INDICATION: Visualization of the renal structures for diagnostic purpose EXAM DATE: 09/02/2024 02:40 PM COMPARISON: CT CT AB PEL WO CON-NO ORAL OR IV on DOS: 08/31/24 RADIATION DOSE: CTDIvol: 13.89 mGy, DLP: 732.69 mGy*cm PROCEDURE: Helical CT images were obtained of the abdomen and pelvis without IV contrast Sagittal and coronal reconstructions are provided. ORAL CONTRAST: None. ADDITIONAL IMAGES / REFORMATS: None All C T scans at this medical facility are performed using dose modulation techniques as appropriate to a p erformed exam including the following: Automated exposure control was utilized; adjustment of the MA and/or KV according to patient size; and use of iterative reconstruction technique. FINDINGS: LUNG BASE: Bibasilar atelectasis. LIVER: Mild hepatic steatosis. GALLBLADDER AND BILIARY TREE: No calcified gallstones. Normal caliber wall. No intra- or extrahepatic biliary ductal dilation. PANCREAS: Normal. SPLEEN: Normal. BOWEL: Normal. Partially visualized appendix appears normal. ADRENALS: Normal. KIDNEYS AND URETER: Similar mild right hydronephrosis with a stable proximal right ureteral kidney st one. An Hand additional small right kidney stone is seen in the kidney. BLADDER: Normal. REPRODUCTIVE ORGANS: Normal. LYMPH NODES:No lymphadenopathy. PERITONEUM: No ascites or free air. No other fluid collection. VESSELS: Scattered atherosclerotic calcifications are noted. RETROPERITONEUM: Normal. ABDOMINAL WALL: Normal. BONES: Scattered osseous degenerative changes are noted. Lumbar intervertebral disc spacer is noted. IMPRESSION: Similar mild right hydronephrosis with a stable proximal right ureteral kidney stone.
[2024-09-02] MEDS: HYDROmorphone HCL 2 MG/ML VL/or syr IV PRN (16:16)
[2024-09-02] MEDS: KETOROLAC TROMETH 30 MG/ML 1ML VIAL IV ONE (16:50)
[2024-09-02] MEDS: hydrALAZINE HCL 20 MG/ML VL IV PRN (16:50)
--- NOTE | 2024-09-02 17:40 | DVHINCON2 ---
Date of service: Sep 02, 2024 Referring Physician Hospitalist Reason for Consultation Mild right hydronephrosis/right ureteral stone History of Present Illness 49-year-old male with past medical history of hypertension, hyperlipidemia, and DVT, who came to the hospital due to right flank pain. Patient was seen here yesterday and diagnosed with kidney stones. He was given IV fluids, and a couple prescriptions, and sent home. He came back this morning because his pain has worsened. He is unable to sleep, or move, and is vomiting uncontrollably due to the pain. Past Medical History Cardiovascular: HTN, hyperipidemia Heme/Onc: Other (DVT x 2) Past Surgical History Other (spine surgery x 2) Family History: Arthritis G8 MOTHER FH: brain tumor G8 FATHER Hypertension G8 MOTHER Allergies: Coded Allergies: NO KNOWN ALLERGIES (Unverified , 08/31/24) Home Meds Active Scripts Gabapentin (Once-Daily) (Gabapentin) 300 Mg Tab, 300 MG PO Q6HP PRN, #60 TAB Prov:MARTHA LR MD 08/31/24 Tamsulosin Hcl (Flomax) 0.4 Mg Cap, 1 CAP PO DAILY for 30 Days, #30 CAP Prov:MARTHA LR MD 08/31/24 Reported Medications Lisinopril & Hydrochlorothiazi (Lisinopril/Hydrochlorothi) 1 Tab Tab, 1 TAB PO DAILY, #30 TAB 5 Refills 08/31/24 Fenofibrate (Fenofibrate Micronized) 134 Mg Cap, 1 CAP PO DAILY, #30 CAP 5 Refills 08/31/24 Apixaban Base (ELIQUIS) 5 Mg Tab, 1 TAB PO BID 08/31/24 Current Medications Current Medications Medications (Trade) Dose Ordered Sig/Lucho Route PRN Reason Start Time Stop Time Status Last Admin Patient Own Medication 1 cap DAILY PO 09/02/24 10:00 09/02/24 09:36 Hydromorphone HCl (Dilaudid Injection) 1 mg Q4HPRN PRN IV MODERATE PAIN (4-6 PAIN SCALE) 09/02/24 10:00 09/02/24 16:03 DC Acetaminophen/ Hydrocodone Bitart ([place] 10/325MG Tab) 1 tab Q4HP PRN PO MODERATE PAIN (4-6 PAIN SCALE) 09/02/24 13:30 09/02/24 15:12 Hydromorphone HCl (Dilaudid Injection) 1 mg Q4HPRN PRN IV PAIN SCALE 7 THRU 10 09/02/24 16:15 09/02/24 16:16 Hydralazine HCl (Apresoline Injection) 10 mg Q6HP PRN IV SBP>160 09/02/24 16:45 09/02/24 16:50 Review of Systems Constitutional: No: Fever, Chills, Sweats, Weakness, Malaise, Other Eyes: No: Pain, Vision change, Conjunctivae inflammation, Eyelid inflammation, Other, Redness ENT: No: Ear pain, Ear discharge, Nose pain, Nose discharge, Nose congestion, Mouth pain, Mouth swelling, Throat pain, Throat swelling, Other Respiratory: No: Cough, Dry, Shortness of breath, SOB with excertion, Wheezing, Hemoptysis, Pleuritic Pain, Sputum, Wheezing, Other Cardiovascular: No: Chest Pain, Palpitations, Orthopnea, Paroxysmal Noc. D yspnea, Edema, Lt Headedness, Other Gastrointestinal: No: Nausea, Vomiting, Abdominal Pain, Diarrhea, Constipation, Melena, Hematochezia, Other Genitourinary: No Dysuria, No Frequency, No Incontinence, No Hematuria, No Retention, No Other Musculoskeletal: No: other, neck pain, shoulder pain, arm pain, back pain, hand pain, leg pain, foot pain Skin: No: Rash, Lesions, Jaundice, Bruising, Other Neurological: No: Weakness, Numbness, Incoordination, Change in speech, Confusion, Seizures, Other Allergies: Coded Allergies: NO KNOWN ALLERGIES (Unverified , 08/31/24) Medications Current Medications Medications Dose Ordered Sig/Lucho Route Start Time Stop Time Status Last Admin Dose Admin Acetaminophen/ Hydrocodone Bitart 1 tab Q4HP PRN PO 08/31/24 14:00 UNV Ondansetron HCl 4 mg Q4HP PRN IV 08/31/24 14:00 UNV Docusate Sodium 100 mg BIDPRN PRN PO 08/31/24 14:00 UNV Acetaminophen 650 mg Q6HP PRN PO 08/31/24 14:00 UNV Morphine Sulfate 2 mg Q4HPRN PRN IV 08/31/24 14:00 UNV Tamsulosin HCl 0.4 mg QPM PO 08/31/24 18:00 UNV Sodium Chloride 1,000 ml @ 125 mls/hr Q8H IV 08/31/24 14:00 UNV Prochlorperazine Edisylate 10 mg Q4HPRN PRN IV 08/31/24 14:00 UNV Vital Signs Vital Signs Date Time Temp Pulse Resp B/P (MAP) Pulse Ox O2 Delivery O2 Flow Rate FiO2 09/02/24 16:50 184/93 09/02/24 16:16 73 24 09/02/24 13:00 97.9 97 97.9 09/02/24 08:00 Room Air* 0 21 Physical Exam Vital Signs Date Time Temp Pulse Resp B/P (MAP) Pulse Ox O2 Delivery O2 Flow Rate FiO2 08/31/24 11:33 98.2 69 18 169/110 (129) 97 98.2 General Appearance: Alert, Oriented X3, Cooperative, moderate distress HEENT: Atraumatic, PERRLA, Mucous membr. moist/pink Respiratory: Clear to auscultation, Normal air movement Cardiovascular: Regular rate, Normal S1, Normal S2, No murmurs Abdominal: Normal bowel sounds, Soft, No tenderness, No hepatospenomegaly Extremities: No clubbing, No cyanosis, No edema, Normal pulses, No tenderness/swelling Skin: No rashes, No breakdown, No significant lesion Neuro: Normal gait, Normal speech, Strength at 5/5 X4 ext Psych/Mental Status: Mental status NL, Mood NL Labs/Diagnostic Data Labs Test 09/02/24 04:43 09/01/24 03:25 Range/Units White Blood Count 9.3 # 4.4-10.8 10^3/uL Red Blood Count 4.28 L 4.5-5.90 10^6/uL Hemoglobin 12.6 L 13.5-17.5 g/dL Hematocrit 36.2 L 41.0-53.0 % Mean Corpuscular Volume 84.4 80.0-100.0 fL Mean Corpuscular Hemoglobin 29.3 28.0-32.0 pg Mean Corpuscular Hemoglobin Concent 34.7 32.0-36.0 g/dL Red Cell Distribution Width 12.7 11.8-14.3 % Platelet Count 208 140-450 10^3/uL Mean Platelet Volume 7.8 6.9-10.8 fL Neutrophils (%) (Auto) 84.5 H 37.0-80.0 % Lymphocytes (%) (Auto) 7.8 L 10.0-50.0 % Monocytes (%) (Auto) 7.2 0.0-12.0 % Eosinophils (%) (Auto) 0.2 0.0-7.0 % Basophils (%) (Auto) 0.3 0.0-2.0 % Neutrophils # (Auto) 7.8 1.6-8.6 10 ^3/uL Lymphocytes # (Auto) 0.7 0.4-5.4 10 ^3/uL Monocytes # (Auto) 0.7 0-1.3 10 ^3/uL Eosinophils # (Auto) 0 0-0.8 10 ^3/uL Basophils # (Auto) 0 0-0.2 10 ^3/uL Nucleated Red Blood Cells 0.0 % Sodium Level 140 136-145 mmol/L Potassium Level 4.2 3.5-5.1 mmol/L Chloride Level 105 98-107 mmol/L Carbon Dioxide Level 25 20-31 mmol/L Anion Gap 10 5-15 Blood Urea Nitrogen 15 9-23 mg/dL Creatinine 1.48 H 0.700-1.30 mg/dL Glomerular Filtration Rate Calc 57 >90 mL/min BUN/Creatinine Ratio 10.1 10.0-20.0 Serum Glucose 126 H 74-106 mg/dL Calcium Level 8.7 8.7-10.4 mg/dL Total Bilirubin 0.6 0.2-1.0 mg/dL Aspartate Amino Transferase (AST) 17 <34 U/L Alanine Aminotransferase (ALT) 15 7-40 U/L Alkaline Phosphatase 39 L 46-116 U/L Total Protein 6.0 5.7-8.2 g/dL Albumin 3.9 3.2-4.8 g/dL PATIENT: LIONEL MENDOZA ACCT: [id number] UNIT: [id number] : 1975 LOC: CENTRAL ROOM / BED: [facility] / B AGE / SEX: 49 / M ADM STATUS: ADM IN SERVICE 1412 ORDERING PHYSICIAN: BEBE QUINN MD PROCEDURE(s): ABPL - CT AB PEL WO CON-NO ORAL OR IV REASON: Visualization of the renal structures for diagnostic purpose ORDER NUMBER(s): [id number], ACCESSION NUMBER(s): [id number] CT CT AB PEL WO CON-NO ORAL OR IV INDICATION: Visualization of the renal structures for diagnostic purpose EXAM DATE: 09/02/2024 02:40 PM COMPARISON: CT CT AB PEL WO CON-NO ORAL OR IV on DOS: 08/31/24 RADIATION DOSE: CTDIvol: 13.89 mGy, DLP: 732.69 mGy*cm PROCEDURE: Helical CT images were obtained of the abdomen and pelvis without IV contrast Sagittal and coronal reconstructions are provided. ORAL CONTRAST: None. ADDITIONAL IMAGES / REFORMATS: None All CT scans at this medical facility are performed using dose modulation techniques as appropriate to a performed exam including the following: Automated exposure control was utilized; adjustment of the MA and/or KV according to patient size; and use of iterative reconstruction technique. FINDINGS: LUNG BASE: Bibasilar atelectasis. LIVER: Mild hepatic steatosis. GALLBLADDER AND BILIARY TREE: No calcified gallstones. Normal caliber wall. No intra- or extrahepatic biliary ductal dilation. PANCREAS: Normal. SPLEEN: Normal. BOWEL: Normal. Partially visualized appendix appears normal. ADRENALS: Normal. KIDNEYS AND URETER: Similar mild right hydronephrosis with a stable proximal right ureteral kidney stone. An Hand additional small right kidney stone is seen in the kidney. BLADDER: Normal. REPRODUCTIVE ORGANS: Normal. LYMPH NODES:No lymphadenopathy. PERITONEUM: No ascites or free air. No other fluid collection. VESSELS: Scattered atherosclerotic calcifications are noted. RETROPERITONEUM: Normal. ABDOMINAL WALL: Normal. BONES: Scattered osseous degenerative changes are noted. Lumbar intervertebral disc spacer is noted. IMPRESSION: Similar mild right hydronephrosis with a stable proximal right ureteral kidney stone. ATED BY: ALLEN MAURICIO MD DICTATED DATE/TIME: 09/02/241518 SIGNED BY: ALLEN MAURICIO MD SIGNED DATE/TIME: 09/02/241518 CC: Assessment Right proximal ureteral stone, 5-6 mm Mild right hydronephrosis Plan/Recommendation Pain management Expulsive measures- Flomax Outpatient ESWL TBA Plan discussed with: BEBE Keen MD Sep 02, 2024 17:40
[2024-09-03] VITALS (8 sets, daily range): BP systolic 115–169; BP diastolic 64–97; PULSE 55–90; RESP 18–20; TEMP 97.7–98.3; O2SAT 95–97
--- NOTE | 2024-09-03 13:37 | DVHPNRES ---
Progress Note Date Seen: Sep 03, 2024 Resident Creating Document: TALON SONI RESIDENT Medical Necessity Reason Pt with a Central, PICC or Fol: No Subjective Review of Systems Patient seen and examined at bedside. Reports right flank pain. Urology consultation by Dr. Jose Ramon stephen, Outpatient ESWL TBA Objective vital signs Vital Sign Date Time Temp Pulse Resp B/P (MAP) Pulse Ox O2 Delivery O2 Flow Rate FiO2 09/03/24 13:00 98.0 55 18 159/89 (112) 97 98.0 09/03/24 08:00 Room Air* 0 21 Total Intake and Output 09/02/24 09/02/24 09/03/24 15:00 23:00 07:00 Intake Total 800 ml 1400 ml Output Total 2400 ml Balance -1600 ml 1400 ml medications Current Medications Medications Dose Ordered Sig/Lucho Route Start Time Stop Time Status Last Admin Dose Admin Ondansetron HCl 4 mg Q4HP PRN IV 08/31/24 14:00 Docusate Sodium 100 mg BIDPRN PRN PO 08/31/24 14:00 09/01/24 19:04 100 MG Acetaminophen 650 mg Q6HP PRN PO 08/31/24 14:00 Tamsulosin HCl 0.4 mg QPM PO 08/31/24 18:00 09/02/24 17:18 0.4 MG Sodium Chloride 1,000 ml @ 125 mls/hr Q8H IV 08/31/24 14:00 09/03/24 06:08 125 MLS/HR Prochlorperazine Edisylate 10 mg Q4HPRN PRN IV 08/31/24 14:00 Apixaban 5 mg BID PO 08/31/24 22:00 09/03/24 09:14 5 MG Patient Own Medication 1 tab DAILY PO 09/01/24 10:00 09/03/24 09:14 1 TAB Patient Own Medication 1 cap DAILY PO 09/02/24 10:00 09/03/24 09:14 1 CAP Acetaminophen/ Hydrocodone Bitart 1 tab Q4HP PRN PO 09/02/24 13:30 09/03/24 08:24 1 TAB Hydromorphone HCl 1 mg Q4HPRN PRN IV 09/02/24 16:15 09/02/24 16:16 1 MG Hydralazine HCl 10 mg Q6HP PRN IV 09/02/24 16:45 09/02/24 16:50 10 MG Examination General: Well-built, afebrile, palor, mucosae are moist Cardiovascular: Regular S1 and S2. No murmurs, gallops or rubs. No JVD elevation. No pedal edema Respiratory: Normal B/L air entry on room air. Clear lung sounds on auscultation Abdomen: Soft, right flank tenderness, nondistended, normoactive bowel sounds, no rebound tenderness, no organomegaly, no masses Genitourinary: Deferred MSK/skin: Mobilizes 4 limbs. Skin is dry and warm Neurological: No motor, no sensitive deficits, normal speech. Pupils are isocoric and reactive. Psych/Mental Status: A/Ox3 laboratory and microbiology Laboratory Tests 09/02/24 04:43 Test 09/02/24 04:43 Range/Units Serum Glucose 126 H 74-106 mg/dL Problem List/Assessment/Plan Problem List/Assessment/Plan Acute right flank pain, rule out nephrolithiasis Intractable nausea and pain [id number] right-sided hydronephrosis Acute kidney injury likely vasomotor mediated due to above Continue pain management and IV fluids IV antiemetic prochlorperazine Urology consult: Urology consultation by Dr. Jose Ramon stephen, Outpatient ESWL TBA Continue pain management for now, Possible discharge tomorrow pain improved Uncontrolled hypertension Continue home medication lisinopril and hydrochlorothiazide Anemia likely normocytic Monitor H&H Plan discussed with patient in which all questions have been answered Goal of care discussed with patient for 19 minutes: Full code Case discussed with Dr. Sanchez Plan discussed with: Patient My Orders My Orders Orders - TALON SONI RESIDENT Procedure Category Date Status Time Hydromorphone PHA 09/02/24 In Process Injection (Dilaudid 16:15 Date of Service: Sep 03, 2024 Billing Provider: SAMSON CHOI MD Common Visit Codes: [id number] INP/OBS CARE(HIGH) TALON SONI RESIDENT Sep 03, 2024 13:37 SAMSON CHOI MD Sep 05, 2024 11:37
[2024-09-04 01:00] VITALS: BP 127/77; PULSE 68; RESP 18; TEMP 98.7; O2SAT 95
[2024-09-04 05:00] VITALS: BP 133/75; PULSE 60; RESP 16; TEMP 98.2; O2SAT 96
[2024-09-04 06:28] LABS: Basophils # (auto) 0 10 ^3/uL (0-0.2); Basophils % (auto) 1.1 % (0.0-2.0); Eosinophils # (auto) 0.1 10 ^3/uL (0-0.8); Eosinophils % (auto) 3.1 % (0.0-7.0); Hematocrit 34.3 % (41.0-53.0); Hemoglobin 11.7 g/dL (13.5-17.5); Lymphocytes # (auto) 1.5 10 ^3/uL (0.4-5.4); Mean Corpuscular Hemoglobin 28.6 pg (28.0-32.0); Mean Corpuscular Volume 84.2 fL (80.0-100.0); Monocytes # (auto) 0.4 10 ^3/uL (0-1.3); Monocytes % (auto) 10.4 % (0.0-12.0); Neutrophils % (auto) 49.4 % (37.0-80.0); Platelet Count (auto) 206 10^3/uL (140-450); Red Blood Cells 4.07 10^6/uL (4.5-5.90); Red Cell Distribution Width 12.7 % (11.8-14.3); White Blood Cell 4.1 10^3/uL (4.4-10.8)
[2024-09-04 06:36] LABS: Potassium 4.1 mmol/L (3.5-5.1); Sodium 144 mmol/L (136-145)
[2024-09-04 06:37] LABS: Anion Gap 8 (5-15); Carbon Dioxide 27 mmol/L (20-31)
[2024-09-04 06:38] LABS: Calcium 9.4 mg/dL (8.7-10.4); Chloride 109 mmol/L (98-107)
[2024-09-04 06:42] LABS: BUN/Creatinine Ratio 9.9 (10.0-20.0); Blood Urea Nitrogen 13 mg/dL (9-23); Glucose 81 mg/dL (74-106)
[2024-09-04 08:06] VITALS: PULSE 65; RESP 20; O2SAT 97
[2024-09-04 08:34] VITALS: BP 145/95; PULSE 65; RESP 20; TEMP 97.6; O2SAT 97
[2024-09-04] MEDS ORDERED: TAMS0.4C39 PO (09:17)
[2024-09-04] MEDS ORDERED: LEVO750T40 PO (12:59)
[2024-09-04 13:00] VITALS: BP 155/95; PULSE 65; RESP 18; TEMP 98.1; O2SAT 97
[2024-09-04] MEDS ORDERED: HYDR-4902 PO (13:26)
[2024-09-04 14:06] LABS: Urine Bacteria None Seen /hpf (None Seen)
[2024-09-04 14:22] LABS: Urine Blood 2+ /uL (Negative); Urine Clarity Clear (Clear); Urine Color Colorless (Yellow); Urine Protein, UAD Negative (Negative); Urine Specific Gravity 1.006 (1.001-1.035); Urine Squamous Epithelial Cell None Seen /hpf (<5); Urine Urobilinogen Normal (Negative); Urine WBC < 1 /HPF (0-3); Urine pH 6.5 (5.0-9.0)
[2024-09-04 14:29] VITALS: BP 155/95; PULSE 65; RESP 16; TEMP 98.1; O2SAT 97
[2024-09-04] MEDS: cefTRIAXone 1GM/50ML D5W 50 ML IV ONE (14:58)
--- NOTE | 2024-09-04 15:22 | DVHDSRES ---
Discharge Summary Date of Admission Resident Creating Document: CORA TERRAZAS RESIDENT Aug 31, 2024 at 13:50 Date of Discharge: Sep 04, 2024 Labs/Diagnostic Data: Laboratory Results Test 09/04/24 13:14 09/04/24 05:12 09/01/24 03:25 Urine Color Colorless (Yellow) Urine Clarity Clear (Clear) Urine pH 6.5 (5.0-9.0) Urine Specific Brunson 1.006 (1.001-1.035) Urine Protein Negative (Negative) Urine Ketones Negative (Negative) Urine Blood 2+ /uL (Negative) Urine Nitrite Negative (Negative) Urine Bilirubin Negative (Negative) Urine Urobilinogen Normal mg/dL (Negative) Urine Leukocyte Esterase Negative /uL (Negative) Urine RBC 7 /hpf (0 - 3) Urine Microscopic WBC < 1 /HPF (0-3) Urine Squamous Epithelial Cells None seen /hpf (<5) Urine Bacteria None seen /hpf (None Seen) Urine Glucose Normal mg/dL (Normal) White Blood Count 4.1 10^3/uL (4.4-10.8) Red Blood Count 4.07 10^6/uL (4.5-5.90) Hemoglobin 11.7 g/dL (13.5-17.5) Hematocrit 34.3 % (41.0-53.0) Mean Corpuscular Volume 84.2 fL (80.0-100.0) Mean Corpuscular Hemoglobin 28.6 pg (28.0-32.0) Mean Corpuscular Hemoglobin Concent 34.0 g/dL (32.0-36.0) Red Cell Distribution Width 12.7 % (11.8-14.3) Platelet Count 206 10^3/uL (140-450) Mean Platelet Volume 7.9 fL (6.9-10.8) Neutrophils (%) (Auto) 49.4 % (37.0-80.0) Lymphocytes (%) (Auto) 36.0 % (10.0-50.0) Monocytes (%) (Auto) 10.4 % (0.0-12.0) Eosinophils (%) (Auto) 3.1 % (0.0-7.0) Basophils (%) (Auto) 1.1 % (0.0-2.0) Neutrophils # (Auto) 2.0 10 ^3/uL (1.6-8.6) Lymphocytes # (Auto) 1.5 10 ^3/uL (0.4-5.4) Monocytes # (Auto) 0.4 10 ^3/uL (0-1.3) Eosinophils # (Auto) 0.1 10 ^3/uL (0-0.8) Basophils # (Auto) 0 10 ^3/uL (0-0.2) Nucleated Red Blood Cells 0.0 % Sodium Level 144 mmol/L (136-145) Potassium Level 4.1 mmol/L (3.5-5.1) Chloride Level 109 mmol/L (98-107) Carbon Dioxide Level 27 mmol/L (20-31) Anion Gap 8 (5-15) Blood Urea Nitrogen 13 mg/dL (9-23) Creatinine 1.31 mg/dL (0.700-1.30) Glomerular Filtration Rate Calc 66 mL/min (>90) BUN/Creatinine Ratio 9.9 (10.0-20.0) Serum Glucose 81 mg/dL (74-106) Calcium Level 9.4 mg/dL (8.7-10.4) Total Bilirubin 0.6 mg/dL (0.2-1.0) Aspartate Amino Transferase (AST) 17 U/L (<34) Alanine Aminotransferase (ALT) 15 U/L (7-40) Alkaline Phosphatase 39 U/L (46-116) Total Protein 6.0 g/dL (5.7-8.2) Albumin 3.9 g/dL (3.2-4.8) Other Laboratory Tests 09/04/24 05:12 Brief Hx & Hospital Course: Torsten Burton is a 49-year-old male with past medical history of hypertension, hyperlipidemia, and DVT, who came to the hospital due to right flank pain. Patient was seen here yesterday and diagnosed with kidney stones. He was given IV fluids, and a couple prescriptions, and sent home. He came back this morning because his pain has worsened. He is unable to sleep, or move, and is vomiting uncontrollably due to the pain. During the hospitalization, patient was diagnosed with ureteral stone. CT scan showed similar mild right hydronephrosis with a stable proximal right ureteral kidney stone.Patient had intractable nausea and vomiting and required IV antiemetics and IV fluids. He required IV morphine and p.o. [place] for pain control. Urology was consulted, recommended outpatient ESWL. Patient's blood pressure medications were resumed including lisinopril and hydrochlorothiazide. Patient was started on tamsulosin 0.4 mg daily, IV NS. Creatinine on arrival was 1.73 which trended down to 1.31. Patient received IV ceftriaxone given suspected cystitis. Discharge plan: Follow up with urologist as outpatient within 2 weeks Follow up with primary care physician within 2 weeks Tablet levofloxacin 750 mg 5 days Tablet tamsulosin 0.4 mg daily Resume home medication [facility] Patient agreed to discharge planning. All questions and concerns answered. Consults/Reason for consult Urology consulted Operations or Procedures ORDERING PHYSICIAN: BEBE QUINN MD PROCEDURE(s): ABPL - CT AB PEL WO CON-NO ORAL OR IV REASON: Visualization of the renal structures for diagnostic purpose ORDER NUMBER(s): [id number], ACCESSION NUMBER(s): [id number] CT CT AB PEL WO CON-NO ORAL OR IV INDICATION: Visualization of the renal structures for diagnostic purpose EXAM DATE: 09/02/2024 02:40 PM COMPARISON: CT CT AB PEL WO CON-NO ORAL OR IV on DOS: 08/31/24 RADIATION DOSE: CTDIvol: 13.89 mGy, DLP: 732.69 mGy*cm PROCEDURE: Helical CT images were obtained of the abdomen and pelvis without IV contrast Sagittal and coronal reconstructions are provided. ORAL CONTRAST: None. ADDITIONAL IMAGES / REFORMATS: None All CT scans at this medical facility are performed using dose modulation techniques as appropriate to a performed exam including the following: Automated exposure control was utilized; adjustment of the MA and/or KV according to patient size; and use of iterative reconstruction technique. FINDINGS: LUNG BASE: Bibasilar atelectasis. LIVER: Mild hepatic steatosis. GALLBLADDER AND BILIARY TREE: No calcified gallstones. Normal caliber wall. No intra- or extrahepatic biliary ductal dilation. PANCREAS: Normal. SPLEEN: Normal. BOWEL: Normal. Partially visualized appendix appears normal. ADRENALS: Normal. KIDNEYS AND URETER: Similar mild right hydronephrosis with a stable proximal right ureteral kidney stone. An Hand additional small right kidney stone is seen in the kidney. BLADDER: Normal. REPRODUCTIVE ORGANS: Normal. LYMPH NODES:No lymphadenopathy. PERITONEUM: No ascites or free air. No other fluid collection. VESSELS: Scattered atherosclerotic calcifications are noted. RETROPERITONEUM: Normal. ABDOMINAL WALL: Normal. BONES: Scattered osseous degenerative changes are noted. Lumbar intervertebral disc spacer is noted. IMPRESSION: Similar mild right hydronephrosis with a stable proximal right ureteral kidney stone. ATED BY: ALLEN MAURICIO MD DICTATED DATE/TIME: 09/02/241518 SIGNED BY: ALLEN MAURICIO MD SIGNED DATE/TIME: 09/02/241518 CC: Condition at Discharge: Stable Final Diagnosis/Problems List ACUTE RIGHT FLANK PAIN SECONDARY TO RIGHT NEPHROLITHIASIS Likely complicated cystitis Intractable nausea and vomiting [id number] right-sided hydronephrosis SHELLY likely vasomotor mediated Uncontrolled hypertension Anemia likely normocytic Discharge Disposition: Home Discharge Instruct/Medications Diet: See Comment Diet comment: ADEQUATE FLUID INTAKE. LOW-SODIUM DIET. Activity: Light activity Follow Up/Referral: Follow up with urologist as outpatient within 2 weeks Follow up with primary care physician within 2 weeks Medications: Tablet levofloxacin 750 mg daily for 5 days Tablet tamsulosin daily Resume home medications Discharge Statement: "Patient was advised to return to the ER or call 911 if any headaches, dizziness, shortness of breath, chest pain, abdominal pain, bleeding, fevers, or worsening of medical condition. Patient was counseled about treatment plan, medications, possible side effects, patientverbalized understanding. All questions were answered to the best of my ability. This discharge took greater then 30 minutes in planning, reviewing documentation, counseling the patient, and discussing with other team members." ASSESSMENT ASSESSMENT Assessment ACUTE RIGHT FLANK PAIN SECONDARY TO RIGHT NEPHROLITHIASIS. Date of Service: Sep 04, 2024 Billing Provider: SAMSON CHOI MD Common Visit Codes: 00630-SRE/OBS DISCH DAY >30min CORA TERRAZAS RESIDENT Sep 04, 2024 15:22 SAMSON CHOI MD Sep 05, 2024 11:38
== END 2024-09-04 15:30 | disposition home or self-care (01) | DRG 463 ==
LOC: ER 09:08 → OVERFLOW 13:50 → CENTRAL 09-01 22:20
PROVIDERS: ADMIT Student in an Organized Health Care Education/Training Program; ATTEND Student in an Organized Health Care Education/Training Program
DX: N13.6 Pyonephrosis (principal); N17.0 Acute kidney failure with tubular necrosis; K76.0 Fatty (change of) liver, not elsewhere classified; N20.1 Calculus of ureter; D64.9 Anemia, unspecified; E78.5 Hyperlipidemia, unspecified; E11.9 Type 2 diabetes mellitus without complications; I10 Essential (primary) hypertension; Z82.49 Family history of ischemic heart disease and other diseases of the circulatory system; Z79.899 Other long term (current) drug therapy; Z86.718 Personal history of other venous thrombosis and embolism; N30.00 Acute cystitis without hematuria
CPT/HCPCS: 36415; 74176; 76775; 80048; 80053; 81001; 85025; 96372; 96374; 96375; G0378; J1885; J2405